=== PATIENT | female | born 1985 | race Caucasian/White ===

== ENCOUNTER 2016-11-27 16:22 | Emergency (ER) | payer OTHER ==
[2016-11-27 17:03] LABS: Hematocrit 40.8 % (37.0-47.0); Hemoglobin 13.3 gm/dL (12.5-16.0); Mean Cell Volume 81.3 fl (78-100); Mean Corpuscular Hemoglobin 26.5 pg (27-31); Mean Corpuscular Hgb Conc 32.6 g/dl (32-36); Mean Platelet Volume 10.8 fl (6.0-9.5); Neutrophil # 6.6 K/mm3 (1.3-6.0); Neutrophil % 58.3 % (42-75.0); Platelet Count 363 K/mm3 (150-450); Red Blood Count 5.02 M/mm3 (4.2-5.4); Red Cell Distribution Width 16.3 % (11.5-14.0); White Blood Count 11.4 K/mm3 (4.0-10.5)
[2016-11-27 17:05] LABS: Urine Appearance Clear; Urine Bacteria None Seen; Urine Bilirubin Negative (NEGATIVE); Urine Blood Negative /ul (NEGATIVE); Urine Color Yellow; Urine Ketone Negative (NEGATIVE); Urine Nitrite Negative (NEGATIVE); Urine Protein Negative (NEGATIVE); Urine RBC None Seen /hpf (0-5); Urine Urobilinogen Normal (NORMAL); Urine WBC None Seen /hpf (0-5); Urine pH 5.5 pH (5.0-7.0)
[2016-11-27 17:16] LABS: Albumin * 3.9 gm/dl (3.4-5.0); Anion Gap 13.6 mmol/L (6.8-13.8); BUN/Creatinine Ratio 8.9 (9.0-21.6); Bilirubin, Total 0.1 mg/dL (0.0-1.1); Ca. Corrected For Albumin 8.6 mg/dL (8.4-10.2); Calcium * 8.8 mg/dL (7.9-10.9); Carbon Dioxide 26.5 mmol/L (24-32.6); Potassium 4.1 mmol/L (3.4-4.6); Total Protein 7.9 gm/dL (6.2-8.2)
[2016-11-27] MEDS ORDERED: PROMETHAZINE HCL 25 MG in DEXTROSE 5 % IN WATER 50 ML IV ONE ×2 (17:18)
[2016-11-27] MEDS ORDERED: HYDROmorphone HCL 1 MG/ML DISP.SYRIN IV ONE (17:18)
--- NOTE | 2016-11-27 17:20 | ERNOTE ---
Abdominal HPI - Narrative Date of Service: 11/27/16 - General Chief Complaint: Abdominal Pain Time Seen by Provider: 11/27/16 16:55 Source: patient Exam Limitations: no limitations - Immun/Allergies/Home Medications Immunizatons: IMMUNIZATION HX History of Influenza Vaccine Yes Allergies/Adverse Reactions: Allergies morphine Allergy (Verified 11/27/16 16:44) red dye Allergy (Verified 11/27/16 16:44) Sulfa (Sulfonamide Antibiotics) [Sulfa(Sulfonamide Antibiotics)] Allergy ( Verified 11/27/16 16:44) Home Medications: HOME MEDICATIONS Vilazodone HCl [Viibryd] 40 mg PO DAILY 11/11/15 [Last Taken Unknown] hydrOXYzine HCL [Atarax] 25 - 50 mg PO TID 11/27/16 [Last Taken Unknown] - History of Present Illness Narrative: 3 months ago, hysterectomy for fibroids. History of ovarian cysts. 3 weeks ago right pelvic pain, like her ovarian cyst pain, radiating to her back. Steadily worsening. For three days, nausea, chills, sweats, no fever. Trouble urinating for about a week. Today, feels miserable. Timing: constant, getting worse Quality: aching Activities at Onset: none Modifying Factors - (Improves): Present: other - nothing Modifying Factors - (Worsens): Present: lying down, movement Associated Symptoms: Present: loss of appetite Prior Abdominal Problems: Present: similar symptoms Prior Treatment: Absent: recently seen, currently on antibiotics Review of Systems - Review of Systems Constitutional: Present: See HPI EYE: Present: no symptoms reported ENT: Present: no symptoms reported Respiratory: Present: no symptoms reported Cardiology: Present: no symptoms reported Gastrointestinal/Abdominal: Present: See HPI Genitourinary: Present: See HPI Musculoskeletal: Present: no symptoms reported Skin: Present: no symptoms reported Neurological: Present: depressed Endocrine: Present: no symptoms reported Hematologic/Lymphatic: Present: no symptoms reported Psych: Present: depressed All Other Systems: All systems neg except as marked - Patient's Past Medical History Patient History - Medical: Anxiety, Depression, Kidney stone, Migraines Patient History - Cardiac/Respiratory: No pertinent hx Patient History - Cancer: No Hx of Cancer Patient History - Surgical Procedures: Appendectomy, Cholecystectomy, , Hysterectomy, Tubal Ligation, T & A, Other Patient History - Other: None LMP (Calendar): 06/30/15 - Family History mom Family History - Medical: No pertinent hx - cancer, diabetes, migraines. Family History - Cardiac/Respiratory: No pertinent hx dad Family History - Medical: No pertinent hx Family History - Cardiac/Respiratory: No pertinent hx - Social History Living Situations: home Psych History: Hx of Anxiety, Hx of Depression Smoking Status: Current every day smoker Have you smoked in the past 12 months: Yes Alcohol Use: occasionally Drug Use: none - Immunizations History of Influenza Vaccine: Yes Physical Exam - Physical Exam General Appearance: Present: wd/wn, alert, mild distress Head Exam: Present: normal inspection, no evidence of injury Eye Exam: Normal inspection: bilateral, PERRL: bilateral, EOMI: bilateral Ears, Nose, Throat: Present: normal ENT inspection Neck: Present: normal inspection Respiratory: Present: no respiratory distress, normal breath sounds Cardiovascular/Chest: Present: regular rate, rhythm, no murmur Gastrointestinal/Abdominal: Present: normal bowel sounds, nondistended, soft, no organomegaly, tenderness - right pelvic tenderness Back Exam: Present: normal inspection, other - right back wedger to gentle percussion, entire right low back Extremity Exam: Present: normal inspection, no edema Neurological Exam: Present: alert, oriented, other - anxious Skin Exam: Present: normal color, warm/dry ED Progress - Results and Orders Patient's Lab Results:: I have reviewed the patient's lab results. - Vital Signs Patient's Vital Signs:: I have reviewed the patient's vital signs. Vital Signs: Vital Signs 11/27/16 16:41 Temperature 36.4 C L Pulse Rate 103 H Respiratory 12 Rate Blood Pressure 158/109 O2 Sat by Pulse 98 Oximetry - CT/Ultrasound CT/Ultrasound Narrative: I have reviewed the radiologist's ultrasound report, which is nonacute. - Progress/Reassessment Chief Complaint: Abdominal Pain Progress:: Improved - Transfer of Care Physician Sign Out: Porter Santiago Receiving Physician: Donnell Yoon Pending Results: X-ray results Expected Disposition: Discharge Departure - Departure Clinical Impression: RLQ abdominal pain Referrals: Jes Dawson PA [Primary Care Provider] -
[2016-11-27] MEDS ORDERED: HYDROmorphone HCL 1 MG/ML DISP.SYRIN ONE (17:23)
[2016-11-27 18:55] VITALS: BP 163/103
== END 2016-11-27 20:40 | disposition home or self-care (01) ==
LOC: ER 16:22
DX: K59.01 Slow transit constipation (principal); R10.31 Right lower quadrant pain